=== PATIENT | female | born 1950 | race Caucasian/White ===

== ENCOUNTER 2017-07-01 09:34 | Emergency (ER) | payer MEDICARE, OTHER ==
[~2017-07-01] VITALS: Ht 154.9 cm; Wt 73.3 kg
[~2017-07-01 09:34] MED LIST: AMLO10TA2 PO; ASCO10004 PO; ATOR20TA9 PO; CALC-451 PO; CHOL100018 PO; CHOLESTEROL MED; CLON0.2T PO; LETR2.5T PO; LEVO750T26 PO; LOSA100T6 PO; MAGN300C PO; MULT-212 PO; NEBI20TA2 PO; OMEP-110 PO; PRAZ2CAP2 PO; VITA150T PO; cholesterol
[2017-07-01] MEDS ORDERED: CEFTRIAXONE PMX 1GM/50ML 50 ML ONE (10:59)
[2017-07-01] MEDS ORDERED: ACETAMINOPHEN 500 MG TABLET ONE (10:59)
[2017-07-01] MEDS ORDERED: ACETAMINOPHEN 500 MG TABLET PO ONE (11:00)
[2017-07-01] MEDS ORDERED: SODIUM CHLORIDE 0.9% 1,000ML IVBOLUS ONE (11:00)
[2017-07-01] MEDS ORDERED: SODIUM CHLORIDE FLUSH 10ML SYR IVF ONE (11:00)
[2017-07-01] MEDS ORDERED: CEFTRIAXONE PMX 1GM/50ML 50 ML IVPB ONE (11:00)
[2017-07-01 11:08] LABS: HEMOGLOBIN 11.4 g/dL (11.7-16.4); WHITE BLOOD COUNT 12.6 x10^3/uL (3.4-10)
[2017-07-01 11:22] LABS: ASPARTATE AMINO TRANSFERASE 83 U/L (15-37); BLOOD UREA NITROGEN 26 mg/dL (7-18)
[2017-07-01 11:27] LABS: IS PT STATUS REG ER OR PRE ER? YES
[2017-07-01 13:13] LABS: PATH.CAST-FLAG NOT PRESENT; SPERM-FLAG NOT PRESENT; SRC-FLAG NOT PRESENT; XTAL-FLAG NOT PRESENT; YLC-FLAG NOT PRESENT
[2017-07-01 14:01] VITALS: BP 125/56
== END 2017-07-01 14:04 | disposition home or self-care (01) ==
LOC: ED 12:18
DX: I12.9 Hypertensive chronic kidney disease with stage 1 through stage 4 chronic kidney disease, or unspecified chronic kidney disease (principal); N18.9 Chronic kidney disease, unspecified; N30.00 Acute cystitis without hematuria; Z99.2 Dependence on renal dialysis; Z87.891 Personal history of nicotine dependence
CPT/HCPCS: 36415; 71010; 80053; 81001; 83605; 84145; 84484; 85025; 85610; 85730; 87040; 87086; 93005; 96365; 96366; 99285; J0696; J7030

== ENCOUNTER 2017-09-26 05:59 | Day surgery (SDC) | payer MEDICARE, OTHER ==
[~2017-09-26] VITALS: Ht 154.9 cm; Wt 71.2 kg
[~2017-09-26 05:59] MED LIST changes: +CHOL100012 PO; -CHOL100018 PO; +FURO20TA3 PO
[2017-09-26 07:03] VITALS: BP 158/76
[2017-09-26] MEDS ORDERED: SODIUM CHLORIDE 0.9% 1,000 ML IV SCH (07:05)
[2017-09-26] MEDS ORDERED: MAGN500T PO (07:10)
[2017-09-26] MEDS ORDERED: CYAN10005 PO (07:10)
[2017-09-26] MEDS ORDERED: CRAN200C2 PO (07:10)
[2017-09-26] MEDS ORDERED: CHOL500015 PO (07:10)
[2017-09-26] MEDS ORDERED: FURO20TA3 PO (07:10)
[2017-09-26] MEDS ORDERED: SODI1TAB PO (07:10)
[2017-09-26] MEDS ORDERED: PROTAMINE SULFATE 10 MG/ML, 25ML ONE (07:17)
[2017-09-26] MEDS ORDERED: MIDAZOLAM 1 MG/ML, 5ML ONE (07:17)
[2017-09-26] MEDS ORDERED: HEPARIN 1,000 UNITS/ML, 10ML ONE (07:17)
[2017-09-26] MEDS ORDERED: NALOXONE 1 MG/ML, 2ML ONE (07:17)
[2017-09-26] MEDS ORDERED: NITROGLYCERIN 5 MG/ML, 10ML ONE (07:17)
[2017-09-26] MEDS ORDERED: FENTANYL PF 100 MCG/2ML ONE (07:17)
[2017-09-26] MEDS ORDERED: FLUMAZENIL 0.1 MG/1 ML, 5ML ONE (07:17)
[2017-09-26] MEDS ORDERED: LIDOCAINE 1%, 20ML ONE (07:19)
[2017-09-26] MEDS ORDERED: CLOPIDOGREL 75 MG TABLET ONE (07:54)
== END 2017-09-26 10:30 ==
LOC: OUT 05:59
PROVIDERS: ATTEND Surgery Vascular Surgery
DX: T82.590A Other mechanical complication of surgically created arteriovenous fistula, initial encounter (principal); Y83.8 Other surgical procedures as the cause of abnormal reaction of the patient, or of later complication, without mention of misadventure at the time of the procedure; Y92.89 Other specified places as the place of occurrence of the external cause; I10 Essential (primary) hypertension
CPT/HCPCS: 36415; 36901; 37238; 80047; 99156; 99157; C1725; C1751; C1769; C1876; C1894; J1644; J2250; J2720; J3010; J3490; J7030; 75658; J2310

== ENCOUNTER → 2018-03-24 | Outpatient (CLI) | payer MEDICARE, OTHER ==
[~2018-03-24] MED LIST changes: +CHOL500015 PO; +CRAN200C2 PO; +CYAN10005 PO; +MAGN500T PO; +SODI1TAB PO
== END | disposition home or self-care (01) ==
LOC: RAD 14:14
PROVIDERS: ATTEND Internal Medicine Gastroenterology
DX: R19.7 Diarrhea, unspecified (principal); K85.10 Biliary acute pancreatitis without necrosis or infection; I12.9 Hypertensive chronic kidney disease with stage 1 through stage 4 chronic kidney disease, or unspecified chronic kidney disease; N18.9 Chronic kidney disease, unspecified; R63.4 Abnormal weight loss; R10.9 Unspecified abdominal pain
CPT/HCPCS: 74018

== ENCOUNTER 2019-06-07 12:33 | Outpatient (CLI) | payer MEDICARE, OTHER ==
[~2019-06-07 12:33] MED LIST changes: -AMLO10TA2 PO; +AMLO10TA8 PO; +ATOR20TA37 PO; -ATOR20TA9 PO; +LOSA100T14 PO; -LOSA100T6 PO
== END 2019-06-07 23:59 | disposition home or self-care (01) ==
LOC: CVU 12:33
PROVIDERS: ATTEND Internal Medicine Cardiovascular Disease
DX: I08.3 Combined rheumatic disorders of mitral, aortic and tricuspid valves (principal); I11.9 Hypertensive heart disease without heart failure; E78.5 Hyperlipidemia, unspecified
CPT/HCPCS: 93306